=== PATIENT | male | born 1985 | race African-American/Black ===

== ENCOUNTER 2017-03-19 08:07 | Inpatient (IN) | payer OTHER ==
[~2017-03-19] VITALS: Ht 195.6 cm; Wt 127.0 kg
--- NOTE | ~2017-03-19 | 2DMMODE ---
[facility] [address] [place] [address] 2 D/M-MODE ECHOCARDIOGRAM Name: PARVIZ SHARMA Room #: 440-P ADM IN M.R.#: [id number] Admission: 03/19/17 Attend Phys: Jorge Driscoll MD Discharge: Date of : 83 Date of Service: 03/20/17 1006 Report #: [id number] THIS REPORT FOR: //name// APPROVED REPORT Study performed: 03/20/2017 08:03:12 EXAM: Comprehensive 2D, Doppler, and color-flow Echocardiogram Patient Location: Echo lab Room #: 440 Blood Pressure: 139/82 mmHg HR: 53 bpm Other Information Study Quality: Good Indications Syncope 2D Dimensions RVDd: 38.91 mm LVEF(%): 56.79 (>50%) IVSd: 8.97 (7-11mm) LVOT Diam: 22.99 (18-24mm) LVDd: 48.99 mm PWd: 9.20 (7-11mm) Ascending Ao: 25.61 (22-36mm) LVDs: 34.38 (25-40mm) Aortic Root: 28.69 mm IVC: 18.00 mm Pinto's LVEF: 56.79 % Volumes Left Atrial Volume (Systole) Single Plane 4CH: 52.23 mL Single Plane 2CH: 62.50 mL LA ESV Index: 23.00 mL/m2 Aortic Valve AoV Peak Scottie.: 1.19 m/s AO Peak Gr.: 5.62 mmHg LVOT Max P.36 mmHg LVOT Max V: 1.16 m/s Mitral Valve E/A Ratio: 1.6 MV Decel. Time: 186.15 ms MV E Max Scottie.: 1.01 m/s [facility] [place] [address] [address] [place] [address] 2 D/M-MODE ECHOCARDIOGRAM Name: PARVIZ SHARMA SYLVIA Room #: 440-[facility] IN .R.#: [id number] Admission: 03/19/17 Attend Phys: Jorge Driscoll MD Discharge: Date of : 83 Date of Service: 03/20/17 1006 Report #: [id number] MV A Scottie.: 0.62 m/s MV PHT: 53.98 ms Pulmonary Valve PV Peak Scottie.: 0.98 m/s PV Peak Gr.: 3.86 mmHg Pulmonary Vein P Vein S: 50.9 m/s P Vein D: 41.0 m/s P Vein A Dur.: 23.1 m/s Tricuspid Valve TR Peak Scottie.: 2.50 m/s RAP Estimate: 5.00 mmHg TR Peak Gr.: 25.02 mmHg Left Ventricle The left ventricle is normal size. There is normal LV segmental wall motion. There is normal left ventricular wall thickness. The left ventricular systolic function is normal. The left ventricular ejection fraction is within the normal range. LVEF is 55-60%. The left ventricular diastolic function is normal. Right Ventricle The right ventricle is normal size. The right ventricular systolic function is normal. Atria The left atrium size is normal. Right atrium is mildly dilated. Aortic Valve The aortic valve is normal in structure. No aortic regurgitation is present. There is no aortic valvular stenosis. Mitral Valve The mitral valve is normal in structure. Trace mitral regurgitation. No evidence of mitral valve stenosis. Tricuspid Valve The tricuspid valve is normal in structure. There is trace tricuspid regurgitation. The right atrial pressure is estimated at 5 mmHg. There is no pulmonary hypertension. The estimated PAP was 30 mmHg. Pulmonic Valve The pulmonary valve is normal in structure. There is no pulmonic valvular regurgitation. [address] [address] 2 D/M-MODE ECHOCARDIOGRAM Name: PARVIZ SHARMA Room #: 440-P [facility] IN [facility]#: [id number] Admission: 03/19/17 Attend Phys: Jorge Driscoll MD Discharge: Date of : 83 Date of Service: 03/20/17 1006 Report #: [id number] Great Vessels The aortic root is normal in size. IVC is normal in size and collapses >50% with inspiration. Pericardium There is no pericardial effusion. <Conclusion> The left ventricle is normal size. LVEF is 55-60%. The aortic valve is normal in structure. The mitral valve is normal in structure. Trace mitral regurgitation. The tricuspid valve is normal in structure. There is trace tricuspid regurgitation. The right atrial pressure is estimated at 5 mmHg. There is no pulmonary hypertension. The estimated PAP was 30 mmHg. The pulmonary valve is normal in structure. <ELECTRONICALLY SIGNED> By: Mendez Mg MD 03/20/17 1006 1006 1006 Mendez Mg MD /INF
--- NOTE | ~2017-03-19 | EEG ---
[facility] [address] [employer] [place] [place] [address] ELECTROENCEPHALOGRAM Name: PARVIZ SHARMA Room #: 440-P [facility] IN M.R.#: [id number] Admission: 03/19/17 Attend Phys: Jorge Driscoll MD Discharge: 03/20/17 Date of : 83 Report #: [id number] THIS REPORT FOR: //name// CC: BETH physician/PCP Jorge Driscoll DATE OF SERVICE: 03/20/2017 REASON FOR EVALUATION: This patient is being evaluated for episode of syncope. INTERPRETATION: EEG is being done to further evaluate that. EEG was done by placing the electrodes by standard 10-20 system of electrode placement. Both referential and sequential montages were used for recording. Background activity in this patient's EEG is about 11 Hz and 30 microvolts. This is a symmetrical activity. The patient became drowsy and that may be associated with bilateral slowing. Most of the EEG was obtained when the patient was awake. Photic stimulation is unremarkable. Throughout the record, no active epileptiform activity was noticed. IMPRESSION: This patient's electroencephalogram portion is unremarkable. EKG channel demonstrates what appeared to be showing some ectopics. Further evaluation of that can be done as clinically indicated. Thank you very much for this referral. By: 0721 0743 Mitch Lehman MD /nt
--- NOTE | ~2017-03-19 | EKG ---
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 03/19/17 0906 0812 1 Elijah Guillermo MD, FAC /EPI
[~2017-03-19 08:07] MED LIST: BENADRYL25 MG; GUAIFEN-CODEIN120 ML PO; IBUPROFEN 800800 MG PO; KEFLEX500 MG PO; MACROBID 100 M100 M1 PO; MEN'S BIOMULTI1 EACH PO; ONDANSETRON HCL4 M2 PO; OSELB75 PO; PREDNISONE 10 M10 M1 PO; PROAIR RESPICL90 MCG INH; PROTONIX40 MG PO; ROBITUSSIN100 MG/53 PO; TESSALON PERLE100 MG PO; ULTRAM 50MG TAB50 MG PO; ZANTAC 150MG T150 M1 PO; ZANTAC 150MG T150 MG PO; ZOFRAN ODT4 MG PO; ZOFRAN4 MG PO
[2017-03-19 08:18] VITALS: BP 152/91
[2017-03-19 08:39] LABS: ABSOLUTE NEUTROPHILS 5.3 thou/uL (1.4-8.2); BASOPHILS 1.1 % (0.0-2.0); EOSINOPHILS 3.9 % (0.0-3.0); HEMATOCRIT 39.5 % (42.0-52.0); HEMOGLOBIN 13.4 gm/dL (14.0-18.0); MCH 26.2 pg (26.0-34.0); MCHC 33.8 g/dL (28.0-37.0); MCV 77.3 fL (80.0-100.0); MONOCYTES 5.7 % (1.0-8.0); PLATELET COUNT 193 thou/uL (150-400); POLYS 67.3 % (36.0-66.0); RBC 5.11 mil/uL (4.50-6.00); RDW 15.8 % (10.5-14.5); WBC 7.9 thou/uL (4.0-11.0)
[2017-03-19 08:42] LABS: MANUAL DIFF NO
[2017-03-19 08:53] LABS: ANION GAP 10 mmol/L (7-16); BUN 12 mg/dL (7-18); CALCIUM 8.4 mg/dL (8.5-10.1); CHLORIDE 107 mmol/L (98-107); CO2 26 mmol/L (21-32); CREATININE 1.4 mg/dL (0.7-1.3); GLUCOSE 117 mg/dL (74-106); POTASSIUM 3.7 mmol/L (3.5-5.1); SODIUM 143 mmol/L (136-145)
[2017-03-19 09:02] LABS: TROPONIN-I < 0.04 ng/mL (<0.04-0.07)
[2017-03-19] MEDS ORDERED: ZANTAC 150MG T150 MG PO (09:09)
[2017-03-19 09:37] VITALS: BP 145/87
[2017-03-19 12:26] VITALS: BP 151/93
[2017-03-19 12:29] LABS: FOLIC ACID 10.4 ng/mL (8.6-58.9)
[2017-03-19 16:09] VITALS: BP 151/93
[2017-03-19 16:30] LABS: AMP/METHAMP Negative (Negative); BARBITURATES Negative (Negative); BENZODIAZEPINES Negative (Negative); COCAINE Negative (Negative); METHADONE Negative (Negative); OPIATES Negative (Negative); PCP Negative (Negative); THC POSITIVE (Negative)
[2017-03-19 19:14] VITALS: BP 151/83
[2017-03-19 23:29] VITALS: BP 152/69
[2017-03-20 02:11] LABS: GLYCOHEMOGLOBIN (HGB A1C) 5.5 % (4.8-5.6)
[2017-03-20 04:58] VITALS: BP 139/82
[2017-03-20 06:00] LABS: ANION GAP 9 mmol/L (7-16); BUN 13 mg/dL (7-18); CALCIUM 8.5 mg/dL (8.5-10.1); CHLORIDE 106 mmol/L (98-107); CHOLESTEROL 140 mg/dL (<200); CO2 26 mmol/L (21-32); CREATININE 1.3 mg/dL (0.7-1.3); GLUCOSE 95 mg/dL (74-106); HDL CHOLESTEROL 37 mg/dL (>40); LDL CHOLESTEROL 88 mg/dL (<100); MAGNESIUM 1.8 mg/dL (1.8-2.4); POTASSIUM 3.9 mmol/L (3.5-5.1); SODIUM 141 mmol/L (136-145); TC:HDL 3.8 Ratio (Not establshd); TRIGLYCERIDE 75 mg/dL (<150); VLDL 15 mg/dL (<40)
[2017-03-20 13:34] VITALS: BP 147/91
[2017-03-20 15:20] VITALS: BP 144/101
[2017-03-20 17:22] VITALS: BP 144/101
== END 2017-03-20 18:30 | disposition home or self-care (01) | DRG 312 ==
LOC: ER 08:07 → EROBS 09:24 → 4S 09:24
PROVIDERS: Emergency Medicine; Nurse Practitioner; Psychiatry & Neurology Neurology
DX: R55 Syncope and collapse (principal); N17.9 Acute kidney failure, unspecified; R07.9 Chest pain, unspecified; R03.0 Elevated blood-pressure reading, without diagnosis of hypertension; R00.1 Bradycardia, unspecified; M54.12 Radiculopathy, cervical region; F12.90 Cannabis use, unspecified, uncomplicated; K21.9 Gastro-esophageal reflux disease without esophagitis; F90.9 Attention-deficit hyperactivity disorder, unspecified type; Z83.3 Family history of diabetes mellitus; Z82.49 Family history of ischemic heart disease and other diseases of the circulatory system; Z87.891 Personal history of nicotine dependence; Z79.899 Other long term (current) drug therapy
CPT/HCPCS: 10100

== ENCOUNTER 2017-07-23 12:09 | Emergency (ER) | payer OTHER ==
[~2017-07-23] VITALS: Ht 195.6 cm; Wt 127.0 kg
[2017-07-23] MEDS ORDERED: BACTRIM DS TAB1 EACH PO (13:54)
[2017-07-23] MEDS ORDERED: TRAMADOL 50 MG50 MG PO (13:54)
== END 2017-07-23 14:15 ==
LOC: ER 12:09
DX: L72.3 Sebaceous cyst (principal); K21.9 Gastro-esophageal reflux disease without esophagitis; I10 Essential (primary) hypertension; Z87.891 Personal history of nicotine dependence

== ENCOUNTER 2018-04-15 20:22 | Emergency (ER) | payer OTHER ==
[~2018-04-15] VITALS: Ht 320 cm; Wt 131.5 kg
[~2018-04-15 20:22] MED LIST changes: +BACTRIM DS TAB1 EACH PO; +TRAMADOL 50 MG50 MG PO
== END 2018-04-15 20:53 | disposition home or self-care (01) ==
LOC: ER 20:22
DX: M65.4 Radial styloid tenosynovitis [de Quervain] (principal); I10 Essential (primary) hypertension; K21.9 Gastro-esophageal reflux disease without esophagitis; Z87.891 Personal history of nicotine dependence

== ENCOUNTER 2018-06-27 16:27 | Emergency (ER) | payer OTHER ==
[~2018-06-27] VITALS: Ht 195.6 cm; Wt 131.5 kg
--- NOTE | ~2018-06-27 | EKG ---
[address] [address] ELECTROCARDIOGRAM REPORT Name: PARVIZ SHARMA [facility] [id number] Admission: 06/27/18 Attend Phys: Discharge: 06/27/18 Date of : 83 Report #: [id number] THIS REPORT FOR: //name// 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[facility] : 1985 Requested By: Amaris Franklin Order Number: [id number] MD: Fran Baca Measurements Intervals [place] Rate: 49 P: 31 [place]: 160 QRS: 13 QRSD: 116 T: 3 QT: 436 QTc: 394 Interpretive Statements Sinus bradycardia Nonspecific intraventricular conduction delay Compared to ECG 03/19/2017 08:12:11 Intraventricular conduction delay now present Sinus rhythm no longer present Electronically Signed On 06-28-2018 10:12:26 CDT by Fran Baca [email or web address] <ELECTRONICALLY SIGNED> By: Fran Baca MD 06/28/18 1012 1750 1750 MD OMAR Hicks
[2018-06-27 16:59] LABS: URINE BILIRUBIN NEGATIVE (Negative); URINE BLOOD NEGATIVE (Negative); URINE CLARITY CLEAR; URINE COLOR YELLOW; URINE GLUCOSE-RANDOM* NEGATIVE (Negative); URINE KETONES NEGATIVE (Negative); URINE LEUKOCYTES-REFLEX NEGATIVE (Negative); URINE NITRITE-REFLEX NEGATIVE (Negative); URINE PROTEIN (DIPSTICK) NEGATIVE (Negative); URINE UROBILINOGEN 0.2 E.U./dl (0.2-1.0)
[2018-06-27 17:46] LABS: ABSOLUTE NEUTROPHILS 5.2 thou/uL (1.4-8.2); BASOPHILS 1.1 % (0.0-2.0); EOSINOPHILS 4.1 % (0.0-3.0); HEMATOCRIT 44.5 % (42.0-52.0); HEMOGLOBIN 15.2 gm/dL (14.0-18.0); MCH 26.8 pg (26.0-34.0); MCHC 34.1 g/dL (28.0-37.0); MCV 78.8 fL (80.0-100.0); MONOCYTES 6.6 % (1.0-8.0); PLATELET COUNT 220 thou/uL (150-400); POLYS 62.2 % (36.0-66.0); RBC 5.65 mil/uL (4.50-6.00); RDW 14.9 % (10.5-14.5); WBC 8.3 thou/uL (4.0-11.0)
[2018-06-27 17:49] LABS: CALCIUM 8.8 mg/dL (8.5-10.1); CREATININE 1.5 mg/dL (0.7-1.3); POTASSIUM 3.9 mmol/L (3.5-5.1)
== END 2018-06-27 18:42 | disposition home or self-care (01) ==
LOC: ER 16:27
PROVIDERS: Physician Assistant; Student in an Organized Health Care Education/Training Program
DX: R42 Dizziness and giddiness (principal); K21.9 Gastro-esophageal reflux disease without esophagitis; I10 Essential (primary) hypertension; E66.9 Obesity, unspecified; Z68.45 Body mass index [BMI] 70 or greater, adult; Z87.891 Personal history of nicotine dependence

== ENCOUNTER 2019-02-16 15:57 | Emergency (ER) | payer OTHER ==
[~2019-02-16] VITALS: Ht 193 cm; Wt 142.9 kg
[2019-02-16 15:58] VITALS: BP 135/89
[2019-02-16] MEDS ORDERED: MOBIC7.5 MG PO (16:20)
[2019-02-16] MEDS ORDERED: AMOXICILLIN 50500 MG PO (16:20)
== END 2019-02-16 16:50 | disposition home or self-care (01) ==
LOC: ER 15:57
DX: S09.8XXA Other specified injuries of head, initial encounter (principal); I10 Essential (primary) hypertension; K21.9 Gastro-esophageal reflux disease without esophagitis; Z87.891 Personal history of nicotine dependence; X58.XXXA Exposure to other specified factors, initial encounter; Y93.89 Activity, other specified; Y92.89 Other specified places as the place of occurrence of the external cause; Y99.8 Other external cause status

== ENCOUNTER 2020-12-07 18:33 | Emergency (ER) | payer OTHER ==
[~2020-12-07] VITALS: Ht 193 cm; Wt 133.8 kg
[~2020-12-07 18:33] MED LIST changes: +AMOXICILLIN 50500 MG PO; +MOBIC7.5 MG PO
[2020-12-07] MEDS ORDERED: PROZAC20 MG PO (18:52)
[2020-12-07] MEDS ORDERED: ARIPIPRAZOLE10 MG PO (18:52)
[2020-12-07 19:40] LABS: ABSOLUTE NEUTROPHILS 7.4 thou/uL (1.4-8.2); BASOPHILS 0.8 % (0.0-2.0); EOSINOPHILS 1.7 % (0.0-3.0); HEMATOCRIT 43.6 % (42.0-52.0); HEMOGLOBIN 14.5 gm/dL (14.0-18.0); LYMPHOCYTES 18.2 % (24.0-44.0); MCH 25.4 pg (26.0-34.0); MCHC 33.2 g/dL (28.0-37.0); MCV 76.5 fL (80.0-100.0); MONOCYTES 7.7 % (1.0-8.0); PLATELET COUNT 272 thou/uL (150-400); POLYS 71.6 % (36.0-66.0); RBC 5.69 mil/uL (4.50-6.00); RDW 16.9 % (10.5-14.5); WBC 10.4 thou/uL (4.0-11.0)
[2020-12-07 19:44] LABS: ANION GAP 8 mmol/L (7-16); BUN 17 mg/dL (7-18); CALCIUM 9.1 mg/dL (8.5-10.1); CHLORIDE 102 mmol/L (98-107); CO2 25 mmol/L (21-32); CREATININE 1.2 mg/dL (0.7-1.3); GLUCOSE 98 mg/dL (74-106); POTASSIUM 3.9 mmol/L (3.5-5.1); SODIUM 135 mmol/L (136-145)
[2020-12-07 19:54] LABS: TROPONIN-I <0.06 ng/mL (<0.06)
[2020-12-07] MEDS ORDERED: ZOFRAN ODT4 MG PO (21:07)
[2020-12-07 21:20] VITALS: BP 135/68
--- NOTE | 2020-12-08 07:18 | EKG ---
[place] [address] [facility] [place] [address] ELECTROCARDIOGRAM REPORT Name: PARVIZ SHARMA AMON Room #: DEP [facility]#: [id number] Admission: 12/07/20 Attend Phys: Discharge: 12/07/20 Date of : 83 Report #: [id number] 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 : 1985 Requested By: Saray Balderas Order Number: [id number] MD: Kemar Arreguin Measurements Intervals [place] Rate: 63 P: 9 [place]: 142 QRS: 19 QRSD: 101 T: 5 QT: 406 QTc: 416 Interpretive Statements Sinus rhythm Compared to ECG 06/27/2018 17:50:04 Sinus bradycardia no longer present Intraventricular conduction delay no longer present Electronically Signed On 12-08-2020 7:18:37 [employer]NAGER by Kemar Arreguin [email or web address] <ELECTRONICALLY SIGNED> By: Kemar Arreguin MD, [facility] 12/08/20 0718 184 1840 Kemar Arreguin MD, FACC /EPI
== END 2020-12-07 21:26 | disposition home or self-care (01) ==
LOC: ER 18:33
PROVIDERS: Emergency Medicine
DX: R11.2 Nausea with vomiting, unspecified (principal); Z20.828 Contact with and (suspected) exposure to other viral communicable diseases; R19.7 Diarrhea, unspecified; K21.9 Gastro-esophageal reflux disease without esophagitis; I10 Essential (primary) hypertension; F12.90 Cannabis use, unspecified, uncomplicated; Z87.891 Personal history of nicotine dependence; Z79.899 Other long term (current) drug therapy

== ENCOUNTER 2021-07-04 07:25 | Emergency (ER) | payer OTHER ==
[~2021-07-04] VITALS: Ht 193 cm; Wt 147.4 kg
[~2021-07-04 07:25] MED LIST changes: +ARIPIPRAZOLE10 MG PO; +PROZAC20 MG PO
[2021-07-04 08:40] VITALS: BP 136/92
--- NOTE | 2021-07-04 11:10 | EKG ---
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
== END 2021-07-04 08:40 | disposition home or self-care (01) ==
LOC: ER 07:25
DX: J06.9 Acute upper respiratory infection, unspecified (principal); Z20.822 Contact with and (suspected) exposure to COVID-19; K21.9 Gastro-esophageal reflux disease without esophagitis; I10 Essential (primary) hypertension; Z79.899 Other long term (current) drug therapy; Z87.891 Personal history of nicotine dependence